=== PATIENT | male | born 1995 | race Caucasian/White ===

== ENCOUNTER 2016-07-18 19:46 | Emergency (ER) | payer OTHER ==
[~2016-07-18] VITALS: Ht 185.4 cm; Wt 84.1 kg
[2016-07-18 19:55] VITALS: TEMP 36.9; Ht 185.4 cm; Wt 84.1 kg
[2016-07-18] MEDS ORDERED: SODIUM CHLORIDE 0.9% 1000ML 1,000 ML IV STA (20:38)
[2016-07-18] MEDS ORDERED: FAMOTIDINE 20MG/102 ML D5W IV STA (20:38)
[2016-07-18] MEDS ORDERED: DEXAMETHASONE SOD INJ 10 MG/ML VIAL IV ONE (20:45)
--- NOTE | 2016-07-18 20:47 | EMERGENCY ROOM VISIT NOTE ---
History Report prepared by Wali: Kun Burns Under the Supervision of: Dr. Warren Jacinto D.O. First contact with patient: 20:21 Chief Complaint: RASH Stated Complaint: RASH COVERING ARMS AND LEGS History of Present Illness The patient is a 21 year old male who presents to the Emergency Room with complaints of rashes that began two days ago.The patient rates his symptom severity a 2/10. The rash began under the patient's arms. It has gotten worse and has spread to his arms, wrists, elbows, and legs. The patient states that the rash is very pruritic. He was sick earlier in the week with a sore throat. He was treated with over the counter medications. His throat is not bothering him anymore. The patient denies any past surgical procedures or medical problems. He has not eaten any new foods. He has not used any new deodorants. He denies any nausea, vomiting, penile rash, or penile discharge. He did travel to the [facility] over [place]. He is not taking any medications for the rash. Source of History: patient Onset: two days ago Position: arm (bilateral), elbow (bilateral), wrist (bilateral), leg ( bilateral) Symptom Intensity: 2/10 Quality: other (pruritic) Timing: worsening Associated Symptoms: + rash, No nausea, No vomiting Note: He denies any penile discharge or penile rash. Review of Systems See HPI for pertinent positives & negatives. A total of 10 systems reviewed and were otherwise negative. Past Medical & Surgical Medical Problems: (1) No Known Active Medical Problems Family History Patient reports no known family medical history. Social History Smoking Status: Former Smoker Smokeless Tobacco Use: No Alcohol Use: occasionally Drug Use: none Marital Status: single Housing Status: lives alone Occupation Status: [employer] student Current/Historical Medications Scheduled Prednisone (Prednisone Tab), 40 MG PO DAILY Ranitidine Hcl (Zantac), 150 MG PO BID Allergies Coded Allergies: No Known Allergies (Unverified , 07/18/16) Physical Exam Vital Signs Date Time Temp Pulse Resp B/P Pulse Ox O2 Delivery O2 Flow Rate FiO2 07/18/16 22:42 46 16 126/76 97 Room Air 07/18/16 21:48 74 16 121/65 100 Room Air 07/18/16 19:55 36.9 60 18 133/64 96 Room Air Physical Exam GENERAL: Patient is awake, alert, and in no acute distress. Patient is resting comfortably and showing no signs of anxiety EYES: The conjunctivae are clear. The pupils are round and reactive. EARS, NOSE, MOUTH AND THROAT: The nose is without any evidence of any deformity. Mucous membranes are moist tongue is midline NECK: The neck is nontender and supple. RESPIRATORY: Normal respiratory effort is noted there is no evidence of wheezing rhonchi or rales CARDIOVASCULAR: Regular rate and rhythm noted there no murmurs rubs or gallops normal S1 normal S2 GASTROINTESTINAL: The abdomen is soft. Bowel sounds are present in all quadrants. Abdomen is nontender MUSCULOSKELETAL/EXTREMITIES: There is no evidence of gross deformity full range of motion is noted in the hips and shoulders SKIN: There are no petechiae, pallor or cyanosis noted. Diffuse urticarial rash noted, blanching easily, it appeared to be located on both upper extremities and the groin. NEUROLOGIC: Patient is awake alert and oriented x3 strength is symmetric patellar reflexes are 2+ bilaterally Medical Decision & Procedures Laboratory Results 07/18/16 20:49 Red Blood Count 4.98, Mean Corpuscular Volume 88.8, Mean Corpuscular Hemoglobin 32.7, Mean Corpuscular Hemoglobin Concent 36.9, Mean Platelet Volume 9.9, Neutrophils (%) (Auto) 51.1, Lymphocytes (%) (Auto) 36.2, Monocytes (%) (Auto) 8.8, Eosinophils (%) (Auto) 3.0, Basophils (%) (Auto) 0.6, Neutrophils # (Auto) 4.40, Lymphocytes # (Auto) 3.12, Monocytes # (Auto) 0.76, Eosinophils # (Auto) 0.26, Basophils # (Auto) 0.05 07/18/16 20:49 Test 07/18/16 20:49 White Blood Count 8.62 K/uL (4.8-10.8) Red Blood Count 4.98 M/uL (4.7-6.1) Hemoglobin 16.3 g/dL (14.0-18.0) Hematocrit 44.2 % (42-52) Mean Corpuscular Volume 88.8 fL (80-100) Mean Corpuscular Hemoglobin 32.7 pg (25-34) Mean Corpuscular Hemoglobin Concent 36.9 g/dl (32-36) Platelet Count 274 K/uL (130-400) Mean Platelet Volume 9.9 fL (7.4-10.4) Neutrophils (%) (Auto) 51.1 % Lymphocytes (%) (Auto) 36.2 % Monocytes (%) (Auto) 8.8 % Eosinophils (%) (Auto) 3.0 % Basophils (%) (Auto) 0.6 % Neutrophils # (Auto) 4.40 K/uL (1.4-6.5) Lymphocytes # (Auto) 3.12 K/uL (1.2-3.4) Monocytes # (Auto) 0.76 K/uL (0.11-0.59) Eosinophils # (Auto) 0.26 K/uL (0-0.5) Basophils # (Auto) 0.05 K/uL (0-0.2) RDW Standard Deviation 37.8 fL (36.4-46.3) RDW Coefficient of Variation 11.8 % (11.5-14.5) Immature Granulocyte % (Auto) 0.3 % Immature Granulocyte # (Auto) 0.03 K/uL (0.00-0.02) Anion Gap 10.0 mmol/L (3-11) Est Creatinine Clear Calc Drug Dose 110.0 ml/min Estimated GFR () 99.6 Estimated GFR (Non- 85.9 BUN/Creatinine Ratio 10.9 (10-20) Calcium Level 9.0 mg/dl (8.5-10.1) Total Bilirubin 0.4 mg/dl (0.2-1) Direct Bilirubin mg/dl (0-0.2) Aspartate Amino Transf (AST/SGOT) 21 U/L (15-37) Alanine Aminotransferase (ALT/SGPT) 23 U/L (12-78) Alkaline Phosphatase 72 U/L (45-117) Total Protein 7.2 gm/dl (6.4-8.2) Albumin 3.6 gm/dl (3.4-5.0) Lipase 98 U/L (73-393) Chemistry Specimen Hemolysis Monoscreen NEG (NEG) Laboratory results per my review. Medications Administered Medications (Trade) Dose Ordered Sig/Mu Route Start Time Stop Time Status Last Admin Dose Admin Sodium Chloride (Nss 1000ml) 1,000 ml @ 999 mls/hr Q1H1M STAT IV 07/18/16 20:38 07/18/16 21:38 DC 07/18/16 20:59 999 MLS/HR Dexamethasone Sodium Phosphate (Decadron Inj) 10 mg NOW ONCE IV 07/18/16 20:45 07/18/16 20:46 DC 07/18/16 21:00 10 MG Famotidine (Pepcid 20mg/100 ml) 20 mg ONE STAT IV 07/18/16 20:38 07/18/16 20:40 DC 07/18/16 21:00 20 MG ED Course 2020: The patient was evaluated in room C5. A complete history and physical examination were performed. 2037: Famotidine 20 mg IV, NSS 1,000 ml @ 999 mls/hr IV 2044: Dexamethasone Sodium Phosphate 10 mg IV 2232: Upon reevaluation, the patient is resting comfortably. I discussed the results and treatment plan with him. He verbalized agreement of the treatment plan. He was discharged home. Medical Decision Differential diagnosis: Etiologies such as contact dermatitis, viral exanthem, urticaria, allergic reaction, Montelongo-Jeffrey syndrome, toxic epidermal necrolysis, erythema multiforme, cellulitis, scabies, HSV, varicella, zoster, eczema, staph scalded skin syndrome, fungal infection, as well as others were entertained. Nursing notes reviewed. The patient is a 21-year-old male who presented to the emergency department for an evaluation of rash. The patient had what appeared to be an urticarial rash. It could be possible with contact irritant however the patient did not using new within the last few days. He was treated with IV fluids IV H2 blockers and steroids in the emergency department. On subsequent reevaluation his rash is somewhat improved. He was encouraged to continue all medications as prescribed. He was also encouraged to try using Benadryl as directed for symptomatic relief. He was encouraged to follow-up with [facility] this week for reevaluation but return to the emergency department immediately if symptoms change worsen or the need arises. Impression Primary Impression: Urticaria Scribe Attestation The scribe's documentation has been prepared under my direction and personally reviewed by me in its entirety. I confirm that the note above accurately reflects all work, treatment, procedures, and medical decision making performed by me. Departure Information Dispostion Home / Self-Care Prescriptions Prednisone (Prednisone Tab) 20 Mg Tab 40 MG PO DAILY, #10 TAB Prov: Warren Jacinto, DO 07/18/16 Ranitidine Hcl (ZANTAC) 150 Mg Tab 150 MG PO BID, #60 TAB Prov: Warren Jacinto, DO 07/18/16 Referrals [facility] Forms HOME CARE DOCUMENTATION FORM, IMPORTANT VISIT INFORMATION, WORK / SCHOOL INSTRUCTIONS Patient Instructions My [facility], [place] Additional Instructions Follow-up with your primary care physician this week for reevaluation. Continue using Benadryl 25-50 milligrams every 6-8 hours as needed for symptomatically relief. Do not use Benadryl when you have to drive or go to class. Continue all other medications as prescribed.
[2016-07-18 21:04] LABS: BASO % 0.6 %; BASO ABS # 0.05 K/uL (0-0.2); COMPLETE YES; HEMATOCRIT 44.2 % (42-52); IG% 0.3 %; LYMPH % 36.2 %; LYMPH ABS # 3.12 K/uL (1.2-3.4); MEAN CELL VOLUME 88.8 fL (80-100); MEAN CORPUSCULAR HEMOGLOBIN 32.7 pg (25-34); MEAN CORPUSCULAR HGB CONC 36.9 g/dl (32-36); MEAN PLATELET VOLUME 9.9 fL (7.4-10.4); MONO % 8.8 %; NEUT % 51.1 %; PLATELET COUNT 274 K/uL (130-400); RED BLOOD COUNT 4.98 M/uL (4.7-6.1); WHITE BLOOD COUNT 8.62 K/uL (4.8-10.8)
[2016-07-18 21:52] LABS: ALKALINE PHOSPHATASE 72 U/L (45-117); ALT/SGPT 23 U/L (12-78); AST/SGOT 21 U/L (15-37); BLOOD UREA NITROGEN 13 mg/dl (7-18); BUN/CREATININE RATIO 10.9 (10-20); CARBON DIOXIDE 30 mmol/L (21-32); CHLORIDE 102 mmol/L (98-107); GLUCOSE 95 mg/dl (70-99); POTASSIUM 4.2 mmol/L (3.5-5.1); SODIUM 142 mmol/L (136-145)
[2016-07-18] MEDS ORDERED: PRED20TA2 PO (22:25)
[2016-07-18] MEDS ORDERED: RANI150T3 PO (22:25)
[2016-07-18 22:42] VITALS: BP 126/76; PULSE 46; O2SAT 97
== END 2016-07-18 22:44 | disposition home or self-care (01) ==
LOC: C.EDB 19:49 → C.EDC 22:44
DX: L50.9 Urticaria, unspecified (principal); Z87.891 Personal history of nicotine dependence; Z79.899 Other long term (current) drug therapy